=== PATIENT | female | born 1975 | race Caucasian/White ===

== ENCOUNTER 2023-07-30 09:53 | Outpatient (CLI) | payer BC ==
[2023-07-30] VITALS (9 sets, daily range): BP systolic 112–135; BP diastolic 78–89; PULSE 67–109; RESP 12–24; O2SAT 100
[~2023-07-30] VITALS: Ht 172.7 cm; Wt 93.0 kg
[2023-07-30] MEDS ORDERED: regadenoson 0.4mg/5ml syringe IV ONE (10:15)
[2023-07-30] MEDS ORDERED: aminophylline 500mg/20ml vial IV ONE (11:20)
== END 2023-07-30 23:59 | disposition home or self-care (01) ==
LOC: RAD 09:53
PROVIDERS: ATTEND Family Medicine
DX: R07.9 Chest pain, unspecified (principal)
CPT/HCPCS: 78452; 93017; A9500; J2785

== ENCOUNTER 2023-08-03 14:25 | Inpatient (IN) | payer BC ==
[2023-08-03] VITALS (16 sets, daily range): BP systolic 128–148; BP diastolic 79–95; PULSE 71–103; RESP 11–18; TEMP 97; O2SAT 93–99
[~2023-08-03] VITALS: Ht 172.7 cm; Wt 93.6 kg
[2023-08-03] MEDS ORDERED: normal saline 1000ML IV soln IVB ONE (14:45)
[2023-08-03] MEDS ORDERED: ondansetron/PF 4mg/2ml inj IV ONE ×2 (14:45→16:40)
[2023-08-03 15:02] LABS: BILIRUBIN,URINE NEGATIVE (Neg); CLARITY,URINE CLOUDY (Clear); COLOR,URINE YELLOW (Yellow); GLUCOSE, URINE NEGATIVE (Neg); KETONES,URINE TRACE mg/dl (Neg); LEUKOCYTE ESTERASE ,URINE NEGATIVE (Neg); NITRITES, URINE NEGATIVE (Neg); OCCULT BLOOD,URINE NEGATIVE (Neg); PROTEIN,URINE NEGATIVE (Neg); URINE HCG NEGATIVE (NEG); UROBILINOGEN,URINE 0.2 E.U/dL (0.2-1.0)
[2023-08-03 15:09] LABS: UA COLLECTION TYPE CLN CATCH MIDSTREAM
[2023-08-03 15:12] LABS: BACTERIA,URINE NONE SEEN /HPF (Neg); MUCUS STRANDS FEW /LPF (Neg); RBC,URINE 0-2 /HPF (0-2); SQUAMOUS EPITHELIAL CELL,UR MODERATE /LPF (FEW); WBC,URINE 0-4 /HPF (0-4)
[2023-08-03 15:40] LABS: BASOPHILS % (AUTO) 0.3 % (0-1); EOSINOPHILS # (AUTO) 3.4 X10'3 (0-0.9); HEMATOCRIT 39.5 % (35.0-45.0); LYMPHOCYTES # (AUTO) 2.4 X10'3 (1.1-4.8); LYMPHOCYTES % (AUTO) 15.6 % (21-51); MEAN CORPUSCULAR HEMOGLOBIN 29.2 PG (27.0-31.0); MEAN CORPUSCULAR VOLUME 88.4 FL (78-98); MEAN PLATELET VOLUME 8.9 FL (7.4-10.4); MONOCYTES # (AUTO) 0.9 X10'3 (0-0.9); MONOCYTES % (AUTO) 5.6 % (2-12); NEUTROPHILS # (AUTO) 8.7 X10'3 (1.8-7.7); NEUTROPHILS % (AUTO) 56.5 % (42-75); PLATELET COUNT 194 X10'3 (140-440); RED BLOOD COUNT 4.46 X10'6 (4.20-5.60); RED CELL DISTRIBUTION WIDTH 13.1 % (11.5-14.5); WHITE BLOOD COUNT 15.3 X10'3 (4.5-11.0)
[2023-08-03 16:14] LABS: ALANINE AMINOTRANSFERASE 26 U/L (12-78); ALBUMIN/GLOBULIN RATIO 1.3 (1.1-1.5); ALKALINE PHOSPHATASE 99 IU/L (46-116); AMYLASE 62 U/L (25-115); ANION GAP 9 (8-16); ASPARTATE AMINO TRANSFERASE 22 U/L (10-37); BILIRUBIN,TOTAL 0.3 MG/DL (0.1-1.0); BLOOD UREA NITROGEN 15 MG/DL (7-18); CALCIUM 9.4 MG/DL (8.5-10.1); CHLORIDE 105 MMOL/L (99-107); CREATININE 0.88 MG/DL (0.40-0.90); GLUCOSE 108 MG/DL (70-104); LIPASE 32 U/L (16-77); POTASSIUM 3.4 MMOL/L (3.5-5.1); SODIUM 139 MMOL/L (135-145); TOTAL CARBON DIOXIDE 25.3 MMOL/L (24-32); eCRCL 78 ML/MIN; eGFR 68 ML/MIN
[2023-08-03] MEDS ORDERED: morphine 4 MG/ML inj SYRINge IV ONE (16:30)
[2023-08-03] MEDS ORDERED: piperacillin/tazo 4.5gm/100ml 100 ML IV ONE (16:30)
[2023-08-03] MEDS ORDERED: INDOCYANINE GREEN 25 MG/10 ML VIAL IV STA (17:28)
[2023-08-03] MEDS ORDERED: ringers solution, lacted 1,000 ML IV SCH ×2 (17:30→18:15)
--- NOTE | 2023-08-03 17:30 | NUR ---
Pharmacy called, [facility] will be ready in 15 minutes
--- NOTE | 2023-08-03 17:52 | NUR ---
Dr. Hernandez, hospitalist at bedside
[2023-08-03] MEDS ORDERED: GABA-530 PO (17:53)
[2023-08-03] MEDS ORDERED: FLUO20TA28 PO (17:53)
[2023-08-03] MEDS ORDERED: LEVO50TA PO (17:53)
[2023-08-03] MEDS ORDERED: ROSU10TA2 PO (17:53)
[2023-08-03] MEDS ORDERED: LIDOcaine 1% 30ml preserv. free vial ONE (18:01)
[2023-08-03] MEDS ORDERED: INDOCYANINE GREEN 25 MG/10 ML VIAL IV ONE (18:01)
[2023-08-03] MEDS ORDERED: BUPIVAcaine/PF 2.5mg/ml (0.25%) 10ml vial ONE (18:02)
[2023-08-03] MEDS ORDERED: ondansetron/PF 4mg/2ml inj ONE ×2 (18:08→18:17)
[2023-08-03] MEDS ORDERED: meperidine/PF 25mg/ml syringe IV PRN ×3 (18:15)
[2023-08-03] MEDS ORDERED: ondansetron/PF 4mg/2ml inj IV PRN ×3 (18:15→20:05)
[2023-08-03] MEDS ORDERED: glycopyrrolate 0.2mg/ml inj ONE (18:17)
[2023-08-03] MEDS ORDERED: sevoflurane 250ml liquid IH ONE (18:17)
[2023-08-03] MEDS ORDERED: acetaminophen 1000 MG/100ml vial IV ONE (18:17)
[2023-08-03] MEDS ORDERED: neostigmine methylsulfate 1 MG/ML 10ml vial ONE (18:17)
[2023-08-03] MEDS ORDERED: fentaNYL/PF 50MCG/1 ML 2ML syringe ONE (18:20)
[2023-08-03] MEDS ORDERED: midazolam 1 mg/ML 2ml injection ONE (18:20)
[2023-08-03] MEDS ORDERED: rocuronium 10mg/ml inj IV ONE (18:21)
[2023-08-03] MEDS ORDERED: LIDOcaine 2% (20mg/ml) 5ml vial ONE (18:21)
[2023-08-03] MEDS ORDERED: propofol inj 20 ML IV ONE (18:21)
[2023-08-03] MEDS ORDERED: magnesium 4gm in 100ml NS 100 ML IV PRN (18:35)
[2023-08-03] MEDS ORDERED: magnesium 2GM in 50ml NS 50 ML IV PRN (18:35)
[2023-08-03] MEDS ORDERED: potassium Cl 40MEQ/1/2NS 520ml 520 ML IV PRN (18:35)
[2023-08-03] MEDS ORDERED: potassium Cl 20 mEq SR tablet PO PRN ×2 (18:35)
[2023-08-03] MEDS ORDERED: morphine 2 MG/ML inj. syringe IV PRN (18:35)
[2023-08-03] MEDS ORDERED: normal saline 1000ml 1,000 ML IV SCH (18:35)
[2023-08-03] MEDS ORDERED: magnesium Cl slow-release 64mg tablet PO PRN (18:35)
[2023-08-03] MEDS ORDERED: dexamethasone sod phosphate 4mg/ml inj. ONE (18:45)
[2023-08-03] MEDS ORDERED: sugammadex 200mg/2ml injection IV ONE (19:37)
--- NOTE | 2023-08-03 19:44 | NUR ---
Received from OR via BED, accompanied by Anesthesiologist GIL and report given by Anesthesiolgist. LALO CABALLERO. DENIES PAIN BUT REPORTS NAUSEA - MEDICATED W/ COMPAZINE AT MD'S INSTRUCTION. MONTIOR SR/ST. O2 AT 10 LPM PER MASK - SAO2 98-100%. 4 LAP SITES - 2 RIGHT, 1 MIDLINE, 1 LEFT DRESSED W/ BANDAIDS THAT ARE D&I. 20G IV PATENT TO [facility]ANG. Addendum: 08/03/23 at 2051 by Alden Marshall RN Amended: Links added.
--- NOTE | 2023-08-03 19:44 | NUR ---
Received from OR via BED , accompanied by Anesthesiologist GIL and report given by Anesthesiolgist. PT IS DROWSY BUT ROUSABLE. DENIES PAIN, BUT STATES SHE IS NAUSEATED. GIVEN COMPAZAINE AT MD'S INSTRUCTION. MONITOR SR/ST. SAO2 99-100% ON 6 LPM PER MASK. 4 LAP SITES DRESSED W/ BANDAIDS THAT ARE D&I. 20 G IV PATENT TO R AC. ENCOURAGED TO DEEP BREATHE.
[2023-08-03] MEDS: proCHLORperazine 10 MG/2 ml inj IV PRN ×2 (19:50→20:36)
[2023-08-03] MEDS ORDERED: BUPIVAcaine/PF 2.5 mg/ml (0.25%) 30ml vial IJ ONE (19:53)
[2023-08-03] MEDS ORDERED: LIDOcaine 1% 30ml preserv. free vial IJ ONE (19:53)
[2023-08-03] MEDS ORDERED: K and/or MAG REPLACEMENT MC SCH (20:00)
[2023-08-03] MEDS ORDERED: HYDROcodone/acetaminophen 10/325mg tab PO PRN (20:05)
[2023-08-03] MEDS ORDERED: naloxone 0.4 mg/ml inj IV PRN (20:05)
[2023-08-03] MEDS ORDERED: HYDROcodone/acetaminophen 5mg/325mg tablet PO PRN (20:05)
[2023-08-03] MEDS ORDERED: HYDROmorphone inj. 0.5 MG/0.5 ML DISP.SYRIN IV PRN (20:05)
--- NOTE | 2023-08-03 20:54 | NUR ---
PT REMAINS DROWSY, BUT INCREASINGLY EASY TO ROUSE DURING RR STAY. CONTINUES TO DENY PAIN. MEDICATED x2 FOR NAUSEA W/ GOOD EFFECT. VSS. MONITOR SR. SAO2>96 ON 4L PER NC. ENCOURAGED TO DEEP BREATHE. 4 LAP SITE DRESSINGS REMAIN D&I. TRANSFERRED TO ROOM 4013A VIA BED. PT SETTLED IN ROOM - BED DOWN CALL LIGHT IN REACH. REPORT TO NURSE PAIGE. Addendum: 08/03/23 at 2114 by Alden Marshall RN Amended: Links added.
--- NOTE | 2023-08-03 21:15 | NUR ---
Patient in room [facility]TH[facility] 4013. I have received report from Ronak Toney in recovery and had the opportunity to ask questions and assume patient care.
[2023-08-04] VITALS (9 sets, daily range): BP systolic 117–142; BP diastolic 70–85; PULSE 72–101; RESP 12–18; TEMP 97–98; O2SAT 93–99
[2023-08-04] MEDS ORDERED: gabapentin 100mg capsule PO SCH
--- NOTE | 2023-08-04 00:58 | NUR ---
Problems reprioritized. Patient report given, questions answered & plan of care reviewed with Bhavna AKINS.
--- NOTE | 2023-08-04 01:05 | NUR ---
Took over care of patient at this time from Charline PEÑA.
--- NOTE | 2023-08-04 01:55 | NUR ---
I went to answer the call light .Pt. requested Lozenges for her trough .She said she might aspirated from her Cpap machine because of the setting.I called and got the order for Lozenges q 2h PRN.My mechanical estimator is notified ,.
[2023-08-04] MEDS: benzocaine/menthol oral lozeng 1 EACH BOX MM PRN ×2 (02:26→04:06)
[2023-08-04] MEDS: Chloraseptic (Phenol) Spray 177ml MM PRN ×2 (02:26→04:06)
[2023-08-04 06:01] LABS: BASOPHILS % (AUTO) 0.1 % (0-1); EOSINOPHILS # (AUTO) 0.1 X10'3 (0-0.9); EOSINOPHILS % (AUTO) 0.5 % (0-6); HEMATOCRIT 38.2 % (35.0-45.0); HEMOGLOBIN 12.8 g/dl (12.0-16.0); LYMPHOCYTES # (AUTO) 1.4 X10'3 (1.1-4.8); LYMPHOCYTES % (AUTO) 9.5 % (21-51); MEAN CORPUSCULAR HEMOGLOBIN 29.6 PG (27.0-31.0); MEAN CORPUSCULAR HGB CONC 33.6 g/dL (33.0-36.5); MEAN PLATELET VOLUME 9.2 FL (7.4-10.4); MONOCYTES # (AUTO) 0.4 X10'3 (0-0.9); MONOCYTES % (AUTO) 2.6 % (2-12); NEUTROPHILS # (AUTO) 12.5 X10'3 (1.8-7.7); NEUTROPHILS % (AUTO) 87.3 % (42-75); PLATELET COUNT 175 X10'3 (140-440); RED BLOOD COUNT 4.34 X10'6 (4.20-5.60); RED CELL DISTRIBUTION WIDTH 13.2 % (11.5-14.5); WHITE BLOOD COUNT 14.3 X10'3 (4.5-11.0)
[2023-08-04 06:10] LABS: ALBUMIN 3.7 G/DL (3.4-5.0); ANION GAP 10 (8-16); BLOOD UREA NITROGEN 10 MG/DL (7-18); BUN/CREATININE RATIO 11.9 (10.0-20.0); CALCIUM 8.6 MG/DL (8.5-10.1); CHLORIDE 103 MMOL/L (99-107); CREATININE 0.84 MG/DL (0.40-0.90); GLUCOSE 163 MG/DL (70-104); MAGNESIUM 1.8 MG/DL (1.5-2.4); POTASSIUM 3.6 MMOL/L (3.5-5.1); SODIUM 139 MMOL/L (135-145); TOTAL CARBON DIOXIDE 26.2 MMOL/L (24-32); eCRCL 82 ML/MIN; eGFR 72 ML/MIN
--- NOTE | 2023-08-04 06:30 | NUR ---
Problems reprioritized. Patient report given, questions answered & plan of care reviewed with Beth AKINS.
[2023-08-04] MEDS ORDERED: atorvastatin 20mg tablet PO SCH (08:00)
[2023-08-04] MEDS ORDERED: heparin, porcine 5000 units/ml vial SQ SCH (08:00)
[2023-08-04] MEDS ORDERED: levoTHYROXINE 25mcg tablet PO SCH (08:00)
[2023-08-04] MEDS ORDERED: FLUoxetine 20mg capsule PO SCH (08:00)
[2023-08-04] MEDS ORDERED: HYDR-3964 PO (13:19)
--- NOTE | 2023-08-04 15:28 | NUR ---
DISCHARGE INSTRUCTIONS PER DR. CANALES ORDERS. PATIENT VERBALIZED GOOD UNDERSTANDING OF INSTRUCTIONS
== END 2023-08-04 15:44 | disposition home or self-care (01) | DRG 419 ==
LOC: ER 14:27 → ED HOLD 17:31 → ORTHO 4S 21:11
PROVIDERS: ADMIT Surgery; ATTEND Surgery
PROC: BF522Z0 Other Imaging of Gallbladder using Fluorescing Agent, Intraoperative (ICD-10-PCS; 2023-08-03)
PROC: 8E0W4CZ Robotic Assisted Procedure of Trunk Region, Percutaneous Endoscopic Approach (ICD-10-PCS; 2023-08-03)
PROC: 0FT44ZZ Resection of Gallbladder, Percutaneous Endoscopic Approach (ICD-10-PCS; principal; 2023-08-03 18:17)
DX: K80.00 Calculus of gallbladder with acute cholecystitis without obstruction (principal); E03.9 Hypothyroidism, unspecified; F32.A Depression, unspecified; F41.9 Anxiety disorder, unspecified; G47.33 Obstructive sleep apnea (adult) (pediatric); K66.0 Peritoneal adhesions (postprocedural) (postinfection); E78.5 Hyperlipidemia, unspecified; L40.50 Arthropathic psoriasis, unspecified; G43.909 Migraine, unspecified, not intractable, without status migrainosus; Z90.710 Acquired absence of both cervix and uterus
CPT/HCPCS: 36415; 76700; 80048; 80053; 81001; 81025; 82150; 83605; 83690; 83735; 84145; 85025; 87040; 87081; 94660; 94760; 99285; A4215; A4615; A4618; A7000; G0378; J0131; J0780; J1100; J1644; J2250; J2270; J2405; J2543; J2704; J2710; J3010; J3490; J7030; J7120

== ENCOUNTER 2024-01-21 10:45 | Outpatient (CLI) | payer BC ==
[~2024-01-21 10:45] MED LIST: FLUO20TA28 PO; GABA-530 PO; HYDR-3964 PO; LEVO50TA PO; ROSU10TA2 PO
[2024-01-21 11:26] LABS: BASOPHILS % (AUTO) 0.4 % (0-1); EOSINOPHILS # (AUTO) 0.3 X10'3 (0-0.9); EOSINOPHILS % (AUTO) 3.8 % (0-6); HEMATOCRIT 41.1 % (35.0-45.0); HEMOGLOBIN 13.8 g/dl (12.0-16.0); LYMPHOCYTES # (AUTO) 2.4 X10'3 (1.1-4.8); MEAN CORPUSCULAR HEMOGLOBIN 30.1 PG (27.0-31.0); MEAN CORPUSCULAR HGB CONC 33.5 g/dL (33.0-36.5); MEAN CORPUSCULAR VOLUME 89.7 FL (78-98); MEAN PLATELET VOLUME 8.7 FL (7.4-10.4); MONOCYTES # (AUTO) 0.6 X10'3 (0-0.9); MONOCYTES % (AUTO) 6.6 % (2-12); NEUTROPHILS # (AUTO) 5.5 X10'3 (1.8-7.7); NEUTROPHILS % (AUTO) 62.2 % (42-75); PLATELET COUNT 195 X10'3 (140-440); RED BLOOD COUNT 4.59 X10'6 (4.20-5.60); RED CELL DISTRIBUTION WIDTH 13.4 % (11.5-14.5); WHITE BLOOD COUNT 8.9 X10'3 (4.5-11.0)
[2024-01-21 11:50] LABS: ALANINE AMINOTRANSFERASE 33 U/L (12-78); ALBUMIN 4.4 G/DL (3.4-5.0); ALBUMIN/GLOBULIN RATIO 1.3 (1.1-1.5); ALKALINE PHOSPHATASE 70 IU/L (46-116); ANION GAP 9 (8-16); ASPARTATE AMINO TRANSFERASE 24 U/L (10-37); BILIRUBIN,TOTAL 0.4 MG/DL (0.1-1.0); BLOOD UREA NITROGEN 27 MG/DL (7-18); CALCIUM 9.3 MG/DL (8.5-10.1); CHLORIDE 106 MMOL/L (99-107); CHOL/HDL RATIO 2.2 (0.00-4.99); CHOLESTEROL 124 MG/DL (0-200); GLUCOSE 101 MG/DL (70-104); HDL CHOLESTEROL 57 MG/DL (35-60); LDL CHOLESTEROL 52 MG/DL (50-100); POTASSIUM 4.7 MMOL/L (3.5-5.1); SODIUM 142 MMOL/L (135-145); THYROID STIMULATING HORMONE 0.94 ulU/ml (0.34-4.50); TOTAL CARBON DIOXIDE 27.2 MMOL/L (24-32); TOTAL PROTEIN 7.8 G/DL (6.4-8.2); TRIGLYCERIDES 54 MG/DL (20-135); eGFR 59 ML/MIN
[2024-01-22 19:06] LABS: THYROXINE (T4) 9.4 ug/dL (4.5-12.0); VITAMIN D, 25-HYDROXY 52.4 ng/mL (30.0-100.0)
== END 2024-01-21 23:59 | disposition home or self-care (01) ==
LOC: LAB 10:45
PROVIDERS: ATTEND Family Medicine
DX: M79.642 Pain in left hand (principal); M79.641 Pain in right hand; E55.9 Vitamin D deficiency, unspecified; E78.49 Other hyperlipidemia; M06.9 Rheumatoid arthritis, unspecified; J45.40 Moderate persistent asthma, uncomplicated; E03.9 Hypothyroidism, unspecified; Z87.891 Personal history of nicotine dependence; Z68.32 Body mass index [BMI] 32.0-32.9, adult
CPT/HCPCS: 36415; 71046; 73130; 80053; 80061; 82306; 84436; 84443; 85025

== ENCOUNTER 2024-06-03 05:40 | Emergency (ER) | payer BC ==
[~2024-06-03] VITALS: Ht 175.3 cm; Wt 89.0 kg
[2024-06-03 05:42] VITALS: TEMP 98
[2024-06-03] MEDS: naproxen 500mg tablet PO ONE (07:20)
[2024-06-03 07:54] VITALS: BP 132/72; PULSE 56; RESP 16; O2SAT 98
== END 2024-06-03 07:53 | disposition home or self-care (01) ==
LOC: ER 05:40
DX: S92.812A Other fracture of left foot, initial encounter for closed fracture (principal); G43.909 Migraine, unspecified, not intractable, without status migrainosus; F32.A Depression, unspecified; Z79.899 Other long term (current) drug therapy; Z90.710 Acquired absence of both cervix and uterus; W18.39XA Other fall on same level, initial encounter; Y93.89 Activity, other specified; Y92.89 Other specified places as the place of occurrence of the external cause; Y99.8 Other external cause status
CPT/HCPCS: 73564; 73630; 99284

== ENCOUNTER 2024-12-01 08:10 | Outpatient (CLI) | payer BC ==
[2024-12-01 08:48] LABS: BASOPHILS % (AUTO) 0.4 % (0-1); EOSINOPHILS # (AUTO) 0.3 X10'3 (0-0.9); EOSINOPHILS % (AUTO) 2.9 % (0-6); HEMATOCRIT 38.7 % (35.0-45.0); HEMOGLOBIN 12.8 g/dl (12.0-16.0); LYMPHOCYTES # (AUTO) 2.4 X10'3 (1.1-4.8); LYMPHOCYTES % (AUTO) 26.1 % (21-51); MEAN CORPUSCULAR HGB CONC 33.2 g/dL (33.0-36.5); MEAN CORPUSCULAR VOLUME 90.3 FL (78-98); MEAN PLATELET VOLUME 8.7 FL (7.4-10.4); MONOCYTES # (AUTO) 0.7 X10'3 (0-0.9); MONOCYTES % (AUTO) 7.8 % (2-12); NEUTROPHILS # (AUTO) 5.7 X10'3 (1.8-7.7); NEUTROPHILS % (AUTO) 62.8 % (42-75); PLATELET COUNT 206 X10'3 (140-440); RED BLOOD COUNT 4.28 X10'6 (4.20-5.60); RED CELL DISTRIBUTION WIDTH 12.8 % (11.5-14.5); WHITE BLOOD COUNT 9.2 X10'3 (4.5-11.0)
[2024-12-01 09:23] LABS: ALANINE AMINOTRANSFERASE 41 U/L (12-78); ALBUMIN 4.2 G/DL (3.4-5.0); ALBUMIN/GLOBULIN RATIO 1.3 (1.1-1.5); ALKALINE PHOSPHATASE 74 IU/L (46-116); ANION GAP 6 (8-16); ASPARTATE AMINO TRANSFERASE 27 U/L (10-37); BILIRUBIN,TOTAL 0.3 MG/DL (0.1-1.0); BLOOD UREA NITROGEN 23 MG/DL (7-18); BUN/CREATININE RATIO 25.8 (10.0-20.0); CALCIUM 9.1 MG/DL (8.5-10.1); CHLORIDE 105 MMOL/L (99-107); CHOL/HDL RATIO 4.3 (0.00-4.99); CHOLESTEROL 202 MG/DL (0-200); CREATININE 0.89 MG/DL (0.40-0.90); GLUCOSE 119 MG/DL (70-104); HDL CHOLESTEROL 47 MG/DL (35-60); LDL CHOLESTEROL 122 MG/DL (50-100); POTASSIUM 4.4 MMOL/L (3.5-5.1); SODIUM 141 MMOL/L (135-145); THYROID STIMULATING HORMONE 2.86 ulU/ml (0.34-4.50); TOTAL CARBON DIOXIDE 30.2 MMOL/L (24-32); TOTAL PROTEIN 7.4 G/DL (6.4-8.2); TRIGLYCERIDES 119 MG/DL (20-135); eGFR 67 ML/MIN
== END 2024-12-01 23:59 | disposition home or self-care (01) ==
LOC: LAB 08:10
PROVIDERS: ATTEND Family Medicine
DX: E78.49 Other hyperlipidemia (principal); Z00.00 Encounter for general adult medical examination without abnormal findings; R53.83 Other fatigue; E03.9 Hypothyroidism, unspecified
CPT/HCPCS: 36415; 80053; 80061; 84443; 85025